=== PATIENT | male | born 1990 ===

== ENCOUNTER 2018-10-12 06:14 | Day surgery (SDC) | payer OTHER ==
--- NOTE | 2018-10-12 06:58 | CP.SDSHP ---
Same Day Surgery H & P - History Proposed Procedure: Left shoulder arthroscopy, possible labral repair, acromioplasty, related procedures Pre-Op Diagnosis: Work injury. Left shoulder partial biceps tear. anterior superior labral tear. AC joint hypertrophy. post traumatic tendinosis - Previous Medical/Surgical History Previous Surgical History: denies PMH/PSH. NKDA. non smoker. 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 Patient counseled on the risks of addiction, physical or psychological dependence, and overdose associated with opioid drugs and the danger of taking opioid drugs with alcohol and other central nervous system depressants, and cautioned patient on storage and disposal. 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 Evaluated Today:Candidate for Anesthesia & Procedure: Yes - Date & Time Date: 10/12/18 Time: 07:03 Short Stay Discharge - Short Stay Discharge Admitting Diagnosis/Reason for Visit: S43.432 S43.432A S43.432A M25.312 M75.42 Disposition: HOME/ ROUTINE
[2018-10-12 07:06] VITALS: BMI 25.4
[2018-10-12] MEDS ORDERED: Etomidate 20 mg/10ml Inj IV ONE (07:27)
[2018-10-12] MEDS ORDERED: Rocuronium 10 mg/ml (5 ml) ONE (07:28)
[2018-10-12] MEDS ORDERED: Succinylcholine Chloride 20 mg/ml Syr (5 ml) IV ONE (07:28)
[2018-10-12] MEDS ORDERED: Bupivacaine HCl 0.5% PF (30 ml) Inj ONE (07:29)
[2018-10-12] MEDS ORDERED: EPINEPHrine 1 mg/ml (1:1000) Inj ONE ×2 (07:30→07:39)
[2018-10-12] MEDS ORDERED: Lidocaine 1% Inj (20ml) ONE (07:40)
[2018-10-12] MEDS ORDERED: MethylPREDNISolone Depo 40 mg/ml Inj ONE (07:40)
[2018-10-12] MEDS ORDERED: Bupivacaine 0.5% Inj(30mL) ONE (07:40)
[2018-10-12 07:41] LABS: BASO # 0.1 K/uL (0.0-0.2); BASO % 1.1 % (0.0-2.0); EOS # 0.3 K/uL (0.0-0.7); EOS % 3.9 % (0.0-4.0); HEMOGLOBIN 14.9 g/dL (12.0-18.0); LYMPH # 2.8 K/uL (1.0-4.3); LYMPH % 38.2 % (20.0-40.0); MEAN CELL VOLUME 90.8 fl (80.0-94.0); MEAN CORPUSCULAR HEMOGLOBIN 30.7 pg (27.0-31.0); MEAN CORPUSCULAR HGB CONC 33.8 g/dL (33.0-37.0); MEAN PLATELET VOLUME 7.9 fl (7.2-11.7); MONO # 0.5 K/uL (0.0-0.8); MONO % 7.2 % (0.0-10.0); NEUT # 3.6 K/uL (1.8-7.0); NEUT % 49.6 % (50.0-75.0); NRBC % 0.2 % (0.0-0.0); RBC 4.87 Mil/uL (4.40-5.90); RED CELL DISTRIBUTION WIDTH 12.1 % (11.5-14.5); WHITE BLOOD COUNT 7.2 K/uL (4.8-10.8)
[2018-10-12] MEDS ORDERED: Lactated Ringer's 1,000 ML IV ONE (08:09)
[2018-10-12] MEDS ORDERED: Midazolam 2 MG/2 ML VIAL ONE (12:06)
[2018-10-12] MEDS ORDERED: Dexamethasone 4 mg/1 ml ONE (12:48)
[2018-10-12] MEDS ORDERED: Sevoflurane - Inhalation Anesthetic Liq (250 ml) ONE (13:07)
[2018-10-12] MEDS ORDERED: Neostigmine 1:1000 (1 mg/ml) Inj ONE (14:13)
[2018-10-12] MEDS ORDERED: Bacitracin Ointment 30 GM TUBE ONE (14:17)
[2018-10-12] MEDS ORDERED: Bacitracin OINT 15GM TOP ONE (14:30)
[2018-10-12] MEDS ORDERED: EPINEPHrine 1 mg/ml (1:1000) Inj IJ ONE (14:30)
[2018-10-12] MEDS ORDERED: Oxycodone/Acetaminophen 5/325 mg Tab PO PRN (14:40)
[2018-10-12] MEDS ORDERED: HYDROmorphone 0.5 mg/0.5 ml ISec IVP PRN (14:53)
--- NOTE | 2018-10-12 14:57 | PCM.ANESB1 ---
Interscalene Block - Brachial Plexus Date of Procedure: 10/12/18 Anesthesiologist: Akash Pre-Procedure Diagnosis: Internal derangement left shoulder Post-Procedure Diagnosis: Same Procedure Performed: Interscalene Block of Brachial Plexus Left - Procedure Interscalene Block of Brachial Plexus: This procedure was explained to the patient that it is for post-operative pain management. Consent was obtained after a thorough discussion with the patient regarding the benefits and possible complications of local anesthetic block of the Brachial Plexus at the Interscalene area. The patient was brought to the Operating Room and standard monitors were applied. Time out was held with the circulating nurse to confirm the correct surgery and appropriate block. After applying Oxygen by nasal cannula and administering IV Sedation, the patient's head was gently rotated away from the _left operative shoulder and the anterior scalene groove was carefully palpated. The ultrasound transducer was then applied to the skin in the transverse plane and the brachial plexus was visualized lateral to the carotid artery and in between the anterior and middle scalene muscles. After identification,the anterior lateral portion of the neck was prepped with Chloraprep and Lidocaine 1% was injected subcutaneously for topical analgesia. At this point, a # 22 gauge Stimuplex 2 inches insulated needle was inserted into the interscalene groove and directed in a caudal and midline direction. The needle was inserted lateral to the ultrasound transducer in-plane towards the brachial plexus in a [id number] direction. Needle advancement was performed carefully under direct ultrasound visualization. Nerve stimulator was used and twitched of the affected extremity including the hand brachialis muscles, biceps and the deltoid was obtained at a current of __0.4___MA. After repeated negative aspiration,__2___cc of___0.5%__,___bupivacaine with 1:200,000 epinephrine were injected and this was followed with _28____cc of __0.5___% ___bupivacaine with 1:200,000 epinephrine . Under ultrasoun d guidance the local anesthetics were observed surrounding the roots of the brachial plexus. The needle was removed intact and sterile dressing was applied. The patient had stable vital signs, was conscious and in no apparent distress. The patient tolerated the interscalene block of the bracheal plexus well with stable vital signs and was prepared for subsequent surgery.
[2018-10-12] MEDS ORDERED: Lactated Ringer's 1,000 ML IV SCH (15:00)
--- NOTE | 2018-10-12 18:33 | PCM.SURG1 ---
Surgeon's Initial Post Op Note - Surgeon's Notes Surgeon: Juancho Gericare Aide Teacher: CICI Fuller Type of Anesthesia: General Endo, Block Regional Anesthesia Administered By: DR Sean Augustine Pre-Operative Diagnosis: post-traumatuic derangementL shoulder Operative Findings: 1)Bankart lesion L shoulder. 2) Slap tear- anterior-post (type 2). 3)synovitis/ adhesions/bursitis usbacromial space. 4)subacromial impringment tendonapathy Post-Operative Diagnosis: as above Operation Performed: Arthroscopic repair Bankart lesion/capsulorraphy (arthros copic). arthroscopic repair glenoid labral tear. arthroscvopic acromioplasty. arthroscopic bursectomy/lysis of adhesions in subacromial space Specimen/Specimens Removed: bursa/ cartilage Estimated Blood Loss: EBL {In ML}: 10 Blood Products Given: N/A Drains Used: No Drains Post-Op Condition: Fair Date of Surgery/Procedure: 10/12/18 Time of Surgery/Procedure: 13:10 (12 N)
[2018-10-12 19:15] VITALS: BP 120/68; PULSE 103; RESP 20; TEMP 97.5; O2SAT 96
--- NOTE | 2018-10-13 15:19 | OP ---
PROCEDURE DATE: 10/12/2018 PREOPERATIVE DIAGNOSIS: Posttraumatic derangement of the left shoulder. POSTOPERATIVE DIAGNOSES: 1. A Bankart lesion with capsular tear of left shoulder. 2. Superior labral tear from anterior to posterior tear anterior to posterior to the root of the biceps tendon (type 2). 3. Severe synovitis and adhesions and bursitis in the subacromial space. 4. Subacromial impingement tendinopathy, posttraumatic. OPERATIVE PROCEDURES: 1. Arthroscopic Bankart repair and capsulorrhaphy of the left shoulder. 2. Arthroscopic repair of the superior labral tear from anterior to posterior tear, labral tear extending anterior to posterior to root of the biceps tendon. 3. Arthroscopic debridement and partial synovectomy, extensive debridement of the glenohumeral joint. 4. Arthroscopic acromioplasty. 5. Arthroscopic bursectomy and lysis of adhesions in the subacromial space. SURGEON: Wallace Dawkins MD PATROL DRIVER: Claire Arredondo, certified registered nursing certified surgical first assistant. ANESTHESIA: General endotracheal anesthesia with a regional block. ANESTHESIOLOGIST: Sean Bustos MD BLOOD LOSS: Approximately 10 to 15 mL. BLOOD PRODUCTS: No blood products given. DRAINS: None. POSTOPERATIVE CONDITION: Stable. TIME OF SURGERY: 1310 incision, 12 noon time in the room. OPERATIVE INDICATION: Peña Manuel is a 28-year-old gentleman who presents after a rowell injury when the rowell capsized and the patient injured the left shoulder and fractured his fibula and the left knee. The patient was treated conservatively until the healing of the patient's fibula. The patient was treated for his shoulder with intra-articular injection, activity modification and therapy. Pros, cons, risks and benefits of surgical approach were discussed at length, the possibility of mechanical failure, infection, thromboembolic disease, possibility of later secondary open surgery or tertiary open surgery was discussed. The patient can no longer withstand the discomfort and wished the surgery to be accomplished. DESCRIPTION OF PROCEDURE: After having obtained informed consent in the above fashion, after having identified the side, site and procedure, and a critical pause/time-out, after the satisfactory induction of the anesthetic, the patient identified as Peña Manuel, was placed in the modified rodriguez position with the left upper extremity prepped and free draped in usual fashion for upper extremity surgery. The topographic anatomy of the shoulder was marked and the patient was placed in the upper extremity immobilizer, so-called Scorpion Arthrex shoulder positioner. After sterilely prepping and draping, after having obtained informed consent, after the satisfactory induction of the anesthetic, both general and regional by Dr. Bustos, after having identified the side, site and procedure and a critical pause/time-out, the patient identified as Peña Manuel having been placed in the rodriguez chair position, the left upper extremity was prepped and draped in the usual fashion for arthroscopic shoulder surgery. The topographic anatomy of the shoulder was marked, the spine of the scapula and the lateral aspect of the acromion, the coracoid process. The joint was insufflated with 10 mL of 1% lidocaine without epinephrine using #11 blade, followed by spreading, followed by introduction of blunt trocar, the arthroscope was introduced. There was found to be extensive synovitis and capsular disruption and capsular redundancy. Please refer to the video photographs, taking great care to staying lateral to the coracoid process using #18-gauge spinal needle, followed by #11 blade, an anterior approach was made to the shoulder as well. The Wissinger nancy was placed and the cannula was placed over the Wissinger nancy anteriorly. With the arthroscope posteriorly, an extensive synovectomy and debridement of the glenohumeral joint was accomplished. There was some chondral scuffing as well which a chondroplasty was performed as well. Please refer to the video photographs. There was evidence of a capsular separation and separation of the glenoid labrum extending anterior to posterior to the root of the biceps tendon. The biceps tendon has evidence of trauma, but it is essentially intact and there was no need for repair of the same. With the arthroscope posteriorly, the initial capsulorrhaphy and capsular repair was accomplished. The lasso was placed through the capsule on the anterior aspect and the tear was grasped and was brought to the interval between the labral separation and the glenoid. The nitinol wire was introduced and brought out anteriorly. In this way, the initial aspect and initial part of the capsulorrhaphy arthroscopically was accomplished as well as the repair of the glenoid labral tear. The luggage tag suture was introduced through the nitinol wire, it was brought out anteriorly and the cinching of the loop luggage tag type suture closes the capsular rent. Extensive synovectomy and debridement of the glenohumeral joint having been accomplished, at this point in time, drilling was accomplished at approximately the 10:30 position. The anchor was loaded and the repair was carried out with impaction of the PushLock anchor. A second anchor was accomplished in the same way. Capsulorrhaphy was accomplished with the lasso to the more inferior aspect of the glenoid. It was brought out through the separation between the labrum and the glenoid bony vault thereby repairing the labral separation as well as the capsulorrhaphy being accomplished as well. The nitinol wire was brought out anteriorly. The luggage tag FiberTape was brought out anteriorly, drilling was accomplished, the anchor was loaded and it was impacted, the PushLock anchor was impacted. This having been accomplished, the third was accomplished further superiorly in the area of the glenoid labral separation. The third PushLock anchor was employed. The repair was found to be excellent. Further thermal capsulorrhaphy was accomplished at this point in time with the wand set on a low-thermal setting and the capsular repair was painted. The repair was found to be very good. This having been accomplished, the biceps tendon shows some hemorrhage speaking for injury, but it was not ruptured, even partially on evaluation. The rupture that was read, I think, on MRI was actually the capsular separation which was repaired as well as the excision of the capsular redundancy. Please refer to the video photographs. After extensive debridement of the glenohumeral joint, at this point in time the arthroscope was placed in subacromial space posteriorly, a so-called mid lateral portal was accomplished in a so-called port of [place] fashion using #18-gauge spinal needle, followed by #11 blade, followed by spreading. With the arthroscope posteriorly, the arthroscopic shaver was placed in the subacromial space and a thorough and aggressive debridement and lysis of adhesions in the subacromial space was accomplished. Please refer to the video photographs. Hemostasis was controlled with the arthroscopic wand. This having been accomplished, with the arthroscope mid laterally using a combination of the arthroscopic shaver and the arthroscopic wand, there was found to be evidence of a downward sloping of the acromion with evidence of impingement on the rotator cuff and although there was extensive bursitis, there was no jordana rotator cuff tear. Again, thorough and extensive synovectomy and excision of bursa in the subacromial space was accomplished with the arthroscope mid laterally. The arthroscopic bur was placed from the posterior portal initially and an arthroscopic acromioplasty was accomplished with the bur. Arthroscopic acromioplasty having been accomplished, extensive bursectomy having been accomplished, the arthroscope was again placed posteriorly, the bur was placed laterally, and the arthroscopic partial acromioplasty was completed. The acromioclavicular joint was found not to be injured and although there was some capsular redundancy, there was no evidence of damage to the acromioclavicular joint and it was left in its original state. Thorough debridement and lysis of adhesions of the subacromial space having been accomplished, acromioplasty having been accomplished, the wound was thoroughly irrigated. Closure of the portals was in layers with interrupted Vicryl and nylon. Intra-articular injection was deferred because of the block. Compression dressing and gunslinger splint was applied. Left shoulder is the correct shoulder and this constellation of injuries is as a direct causal result unfortunately of the injury that this patient had sustained when the rowell capsized at his work. Wallace Dawkins MD
== END 2018-10-12 19:05 | disposition home or self-care (01) ==
LOC: H.OPSURG 06:14
PROVIDERS: ATTEND Orthopaedic Surgery
DX: M25.312 Other instability, left shoulder (principal); M75.42 Impingement syndrome of left shoulder; M65.812 Other synovitis and tenosynovitis, left shoulder; S46.212A Strain of muscle, fascia and tendon of other parts of biceps, left arm, initial encounter
CPT/HCPCS: 29806; 29820; 29823; 36415; 85025; 88304; J0171; J0690; J1100; J2001; J2250; J2405; J2710; J2765; J3010; J7030; J7120